=== PATIENT | male | born 1995 | race Two or more races ===

== ENCOUNTER 2020-06-14 08:13 | Emergency (ER) | payer MEDICAID ==
[~2020-06-14] VITALS: Ht 170.2 cm; Wt 68.9 kg
[2020-06-14 08:18] VITALS: BP 148/83
[2020-06-14] MEDS ORDERED: cefTRIAXone W LIDOCAINE 1 GM IM IM ONE (08:45)
[2020-06-14] MEDS ORDERED: TETANUS-DIPTH-ACEL PERTUSSIS 0.5ML SYR Tdap IM ONE (08:45)
[2020-06-14] MEDS ORDERED: LIDOCAINE 1% HCL (LOCAL ANESTH.) INJ 20ML MDV ONE (08:49)
[2020-06-14] MEDS ORDERED: cefTRIAXone SOD 1,000 MG VL ONE (08:49)
== END 2020-06-14 08:56 | disposition home or self-care (01) ==
LOC: ER 08:13
DX: S61.432A Puncture wound without foreign body of left hand, initial encounter (principal); L03.114 Cellulitis of left upper limb; W22.8XXA Striking against or struck by other objects, initial encounter; Y93.89 Activity, other specified; Y92.89 Other specified places as the place of occurrence of the external cause; Y99.8 Other external cause status
CPT/HCPCS: 90471; 90715; 96372; 99284; J0696; J2001